=== PATIENT | male | born 1985 | race Two or more races ===

== ENCOUNTER 2017-09-16 13:44 | Emergency (ER) | payer SELFPAY ==
[~2017-09-16] VITALS: Ht 167.6 cm; Wt 86.4 kg
[2017-09-16 15:26] VITALS: BP 127/78
[2017-09-16] MEDS ORDERED: DiphenhydrAMINE HCL 25 MG CAPSULE PO ONE (15:30)
== END 2017-09-16 15:36 | disposition home or self-care (01) ==
LOC: EMS 13:46
DX: L73.9 Follicular disorder, unspecified (principal); B02.9 Zoster without complications
CPT/HCPCS: 99283